=== PATIENT | male | born 1985 | race Caucasian/White ===

== ENCOUNTER 2019-09-26 11:57 | Emergency (ER) | payer MEDICAID ==
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
[2019-09-26 14:48] VITALS: BP 130/87
== END 2019-09-26 14:48 | disposition home or self-care (01) ==
LOC: ED 11:57
DX: S43.402A Unspecified sprain of left shoulder joint, initial encounter (principal); S39.92XA Unspecified injury of lower back, initial encounter; V43.52XA Car driver injured in collision with other type car in traffic accident, initial encounter; F17.200 Nicotine dependence, unspecified, uncomplicated
CPT/HCPCS: 72070; 72100; 99283

== ENCOUNTER 2019-11-24 17:00 | Emergency (ER) | payer MEDICAID ==
[2019-11-24] MEDS ORDERED: CYCLOBENZAPRINE 10 MG TABLET PO STA (19:12)
[2019-11-24] MEDS ORDERED: MELOXICAM 7.5 MG TABLET PO STA (19:12)
--- NOTE | 2019-11-24 19:16 | ED Physician Documentation ---
PD HPI BACK PAIN - Stated complaint Stated Complaint: BACK PX - Chief complaint Chief Complaint: Back Pain - History obtained from History obtained from: Patient - History of Present Illness Timing - onset: How many weeks ago (1) Timing - duration: Weeks (1) Timing - details: Abrupt onset Pain level max: 7 Pain level now: 6 Location: Lower, Right, Left Quality: Pain, Spasm, Similar to prior episodes Associated symptoms: No: Fever, Weakness, Numbness, Incontinent of urine, Unable to urinate, Hematuria, Incontinent of stool Improves with: Rest Worsened by: Movement Contributing factors: No: Lifting, Twisting, Trauma, Anticoagulated, Cancer, IVDA, Out of meds Similar symptoms before: Diagnosis (states has chronic pain, worse for the past week.) Recently seen: Not recently seen Review of Systems Constitutional: denies: Fever, Chills GI: denies: Vomiting, Diarrhea : denies: Dysuria, Frequency, Hesitancy, Incontinent Skin: denies: Rash Musculoskeletal: denies: Neck pain Neurologic: denies: Focal weakness, Numbness, Confused PD PAST MEDICAL HISTORY - Past Medical History Past Medical History: Yes Cardiovascular: None Respiratory: None Neuro: None Endocrine/Autoimmune: None GI: None : None HEENT: None Psych: None Musculoskeletal: Chronic back pain Derm: None - Past Surgical History Past Surgical History: No - Present Medications Home Medications: Ambulatory Orders Medication Instructions Recorded Confirmed Butalb/Acetaminophen/Caffeine 1 each PO Q6HR #14 capsule 06/09/16 [Fioricet 50-300-40 mg Capsule] Ondansetron Odt [Zofran] 4 mg TL Q6H PRN #10 tablet 06/09/16 Hydrocodone/Acetaminophen 1 - 2 each PO Q6H PRN #10 tablet 09/26/19 [Hydrocodon-Acetaminophen 5-325] Cyclobenzaprine [Flexeril] 10 mg PO TID PRN #20 tablet 11/24/19 Meloxicam [Mobic] 15 mg PO DAILY PRN #20 tablet 11/24/19 - Allergies Allergies/Adverse Reactions: Allergies Allergy/AdvReac Type Severity Reaction Status Date / Time No Known Drug Allergies Allergy Verified 11/24/19 17:07 - Social History Does the pt smoke?: Yes Smoking Status: Current every day smoker Does the pt drink ETOH?: Yes Does the pt have substance abuse?: Yes Substance Use and Type: Marijuana - Immunizations Immunizations are current?: Yes - POLST Patient has POLST: No PD ED PE NORMAL - Vitals Vital signs reviewed: Yes - General General: Alert and oriented X 3, No acute distress - HEENT HEENT: Moist mucous membranes - Cardiac Cardiac: RRR - Respiratory Respiratory: No respiratory distress, Clear bilaterally - Abdomen Abdomen: Soft, Non tender, Non distended - Back Back: Other (No midline tenderness to palpation. No step-off or deformity. Mild paraspinal low lumbar spasm bilaterally) - Derm Derm: Warm and dry - Extremities Extremities: Other (Normal bilateral lower extremity patellar and ankle jerk reflexes. Normal great toe extension bilaterally. no saddle anesthesia) - Neuro Neuro: Alert and oriented X 3, No motor deficit, No sensory deficit Results - Vitals Vitals: Vital Signs - 24 hr 11/24/19 11/24/19 17:07 19:19 Temperature 36.5 C 36.7 C Heart Rate 88 50 L Respiratory 16 18 Rate Blood Pressure 124/64 115/72 O2 Saturation 100 100 Oxygen O2 Source Room air PD MEDICAL DECISION MAKING - ED course Complexity details: considered differential, d/w patient ED course: 34-year-old male with chronic back pain, acutely worsened over the past week. Will trial on Flexeril and meloxicam for home. No evidence of cauda equina, epidural abscess. No trauma. No evidence of fracture. Ambulating well. Patient counseled regarding signs and symptoms for which I believe and urgent re-evaluation would be necessary. Patient with good understanding of and agreement to plan and is comfortable going home at this time This document was made in part using voice recognition software. While efforts are made to proofread this document, sound alike and grammatical errors may occur. Of note patient has not taken anything at home for this over the past week. Departure - Departure Disposition: 01 Home, Self Care Clinical Impression: Back spasm Condition: Good Instructions: ED Spasm Back No Trauma Follow-Up: Franca Fernandez DO [Primary Care Provider] - Within 1 week Prescriptions: Cyclobenzaprine [Flexeril] 10 mg PO TID PRN #20 tablet PRN Reason: Spasms Meloxicam [Mobic] 15 mg PO DAILY PRN #20 tablet PRN Reason: pain Comments: You can use the medications as prescribed. Return if you worsen. Do not drive or operate heavy machinery while taking the Flexeril. Forms: Activity restrictions
[2019-11-24 19:20] VITALS: BP 115/72
== END 2019-11-24 19:33 | disposition home or self-care (01) ==
LOC: ED 17:00
DX: M62.830 Muscle spasm of back (principal); F17.200 Nicotine dependence, unspecified, uncomplicated
CPT/HCPCS: 99282; 99284; A9270